=== PATIENT | female | born 1970 | race Caucasian/White ===

== ENCOUNTER 2018-11-21 10:02 | Inpatient (IN) ==
[2018-11-21] MEDS ORDERED: NS 1,000 ML ONE ×2 (10:05→12:41)
[2018-11-21] MEDS ORDERED: NS 1,000 ML, NS 1,000 ML IV ONE ×2 (10:08)
[2018-11-21] MEDS ORDERED: PROTONIX IV ONE (10:09)
[2018-11-21] MEDS ORDERED: SODIUM CHLORIDE 0.9% INJ ONE (10:09)
[2018-11-21] MEDS ORDERED: NS 1,000 ML IV ONE ×4 (10:10→15:03)
[2018-11-21] MEDS ORDERED: PROTONIX ONE (10:21)
[2018-11-21] MEDS ORDERED: PROTONIX 80 MG in NS 80 ML IV SCH ×2 (10:30→15:00)
[2018-11-21 10:45] LABS: BASO# 0.07 X1000 (0.0-0.2); BASO% 0.4 % (0.0-0.8); EOS% 2.6 % (0.0-10.0); HEMATOCRIT 32.7 % (37.0-47.0); HEMOGLOBIN 10.6 g/dL (12.0-16.0); IMM GRAN# 0.06 X1000 (0.0-0.04); IMM GRAN% 0.3 % (0.0-0.5); LYMPH# 11.44 X1000 (1.2-3.4); LYMPH% 59.1 % (20.5-51.1); MCH 30.5 PG (27-31); MCHC 32.4 g/dL (33-37); MCV 94.2 FL (81-99); MONO# 1.02 X1000 (0.11-0.59); MONO% 5.3 % (1.7-9.3); MPV 10.6 FL (7.4-10.4); NEUT# 6.28 X1000 (1.4-6.5); NEUT% 32.3 % (42.2-75.2); PLT 200 X1000 (130-400); RBC 3.47 XMIL (4.2-5.4); RDW 14.6 % (11.5-14.5); WBC 19.37 X1000 (4.8-10.8)
[2018-11-21 11:02] LABS: AGAP 15; ALKALINE PHOSPHATASE 93 U/L (32-104); BUN 5 mg/dL (8-22); CALCIUM 8.7 mg/dL (8.8-10.2); CHLORIDE 104 mmol/L (98-107); COSMO 282; CREATININE 0.5 mg/dL (0.5-0.9); ESTIMATED GFR > 60; GLUCOSE 364 mg/dL (70-104); GOT 20 U/L (10-30); GPT 11 U/L (10-36); POTASSIUM 4.8 mmol/L (3.5-5.1); SODIUM 135 mmol/L (136-145); TCO2 16 mmol/L (25-35); TOTAL PROTEIN 5.9 g/dL (6.3-8.3)
[2018-11-21] MEDS ORDERED: ZOFRAN IV PRN ×2 (11:24→15:04)
[2018-11-21] MEDS ORDERED: VANCOMYCIN IV PER PHARMACY MISC SCH (11:30)
[2018-11-21] MEDS ORDERED: NS 1,000 ML IV SCH ×2 (11:30→16:00)
[2018-11-21 11:33] LABS: IRON SATURATION 31 %; TIBC 208 ug/dL; TOTAL IRON 64 ug/dL (49-151); UNBOUND IRON 144 ug/dL (112-346)
[2018-11-21 11:37] LABS: HEMOGLOBIN A1C 9.2 % (4.8-6.0)
[2018-11-21] MEDS ORDERED: HUMULIN R (PARKWAY) SUBQ SCH (11:40)
[2018-11-21] MEDS ORDERED: SANDOSTATIN 500 MICROGM in D5W 100 ML IV SCH ×2 (12:00→22:00)
[2018-11-21] MEDS ORDERED: VANCOMYCIN 1,800 MG in NS 250 ML IV ONE (12:00)
[2018-11-21] MEDS ORDERED: ZOSYN 3.375 GM in NS 50 ML IV SCH ×2 (12:00→20:00)
--- NOTE | 2018-11-21 12:03 | PROVIDER DOCUMENTATION ---
This chart was entered by Julia Rothman Scribe, acting as scribe for Aidan Woods MD. HPI-Abdominal Pain/GI Problem - General Chief Complaint: GI Bleed Stated Complaint: VOMITING Time Seen by Provider: 11/21/18 10:07 Source: patient Allergies/Adverse Reactions: Patient Allergies Allergy/AdvReac Type Severity Reaction Status Date / Time pravastatin Allergy SWELLING Verified 01/17/15 12:33 Home Medications: Home Medication List Medication Instructions Recorded Confirmed Last Taken Type Clopidogrel Bisulfate [Plavix] 75 mg PO 07/27/13 01/17/15 Unknown History LISINOpril [Prinivil] 10 mg PO DAILY 07/27/13 01/17/15 Unknown History Glipizide 10 mg PO DAILY 01/22/14 01/17/15 Unknown History Rosuvastatin Calcium [Crestor] 10 mg PO DAILY 01/17/15 01/17/15 Unknown History Sulfamethoxazole/Trimethoprim 1 each PO BID #10 tablet 01/17/15 Unknown Rx [Bactrim Ds Tablet] Hydrocodone/APAP 5 mg/325 mg 1 each PO Q6H PRN PRN #15 tablet 01/26/15 Unknown Rx [[place]-5] Gabapentin 300 mg PO Q8H PRN #12 cap 10/19/18 Unknown Rx Hydroxyzine Pamoate [Vistaril] 25 mg PO Q6H PRN #30 cap 10/19/18 Unknown Rx - History of Present Illness-ABD Nature of Presenting Problems: Patient is a 48 year old female who presents with diarrhea and hematemesis. States symptoms started 30 minutes prior to arrival. 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 States she takes an 81 mg aspirin and Plavix. Quality of Pain: reports: none Severity in ED: reports: severe Onset/Duration: reports: 1/2 hour ago Timing: reports: still present Activities at Onset: reports: light activity Associated Symptoms: reports: diarrhea, vomiting (hematemesis) Rectal Bleeding: reports: none Emesis Description: reports: red blood Bruising or Bleeding Gums?: No Similar Symptoms Previously?: No Recently seen or treated by another doctor?: No Review of Systems - Adult - REVIEW OF SYSTEMS - ADULT ROS:: limited per condition Constitutional: reports: no symptoms reported Eyes: reports: no symptoms reported Ears, Nose, Mouth & Throat: reports: no symptoms reported Cardiovascular: reports: no symptoms reported Respiratory: reports: no symptoms reported Gastrointestinal: reports: see HPI, hematemesis, diarrhea. denies: rectal bleeding Genitourinary: reports: no symptoms reported Musculoskeletal: reports: no symptoms reported Integumentary: reports: no symptoms reported Neurological: reports: no symptoms reported Psychiatric: reports: no symptoms reported Endocrine: reports: no symptoms reported Hematologic/Lymphatic: reports: no symptoms reported Allergic/Immunologic: reports: no symptoms reported All Other Systems: Reviewed and Negative Past History - Adult - PAST MEDICAL HISTORY-ADULT Review of Records: reports: Old Records Reviewed, Nursing Assessment Review, Medications Reviewed, Social history reviewed & non-contributory. Major Childhood Illnesses: reports: denies history Cardiovascular: reports: cardiac disease, hyperlipidemia Respiratory: reports: denies history Gastrointestinal: reports: Crohn's, other (nonalcoholic cirrhosis) Obstetrical/Gynecological: reports: denies history Genitourinary: reports: denies history Musculoskeletal: reports: denies history Neurological: reports: denies history Endocrine/Immune: reports: Diabetes Other Conditions: reports: denies history - PRIOR SURGERIES/PROCEDURES Surgical/Procedure History: reports: cardiac stent, BTL, , orthopedic (extremity) - IMMUNIZATION STATUS Childhood Immunizations: See Nurse Assessment Flu Vaccine: See Nurse Assessment - FAMILY HISTORY Family History: reviewed, not pertinent - SOCIAL HISTORY Smoking: cigarettes, greater than 1 pack/day Provider spent 3-5 mins advising pt. on dangers of tobacco.: Discussed manners to quit use, and f/u contacts for add'l counseling. Substance Use: denies Physical Exam-General - PHYSICAL EXAM-ADULT Initial Vital Signs Reviewed: Yes - CONSTITUTIONAL General Appearance: alert, severe distress. negative: lethargic - HEAD, EARS, NOSE, MOUTH & THROAT HENMT: normocephalic/atraumatic, moist mucous membranes. negative: angioedema - RESPIRATORY Respiratory: chest non-tender, lungs clear, normal breath sounds. negative: r ales, rhonchi - CARDIOVASCULAR Cardiovascular: normal peripheral pulses, tachycardia. negative: systolic murmur - GASTROINTESTINAL (ABDOMEN) Abdominal Exam: normal bowel sounds, soft, tenderness (diffuse). negative: distended - MUSCULOSKELETAL Extremity: other (dried blood stains on bilateral legs). negative: deformity, erythema - SKIN Integumentary: normal turgor, warm/dry. negative: cyanosis, ecchymosis, jaundice - NEUROLOGIC Neurologic: grossly normal. negative: aphasia, facial droop Progress - PLAN OF CARE/RESULTS Progress/Plan/Lab Results: Vital Signs - 8 hr 11/21/18 10:03 Pulse Rate 137 H Respiratory Rate 28 H Blood Pressure 66/46 O2 Sat by Pulse Oximetry 97 Orders Category Date Time Status CBC WITH DIFF [HEME] Stat Lab 11/21/18 10:08 Uncollected COMPREHENSIVE METABOLIC PANEL [CHEM] Stat Lab 11/21/18 10:08 Uncollected TYPE & SCREEN [BBK] Stat Lab 11/21/18 10:08 Uncollected 0.9% Sodium Chloride Inj [Ns] 1,000 ml Med 11/21/18 10:08 Active 0.9% Sodium Chloride Inj [Ns] 1,000 ml IV 999 mls/hr 0.9% Sodium Chloride Inj [Ns] 1,000 ml Med 11/21/18 10:10 Active IV 200 mls/hr 0.9% Sodium Chloride Inj [Ns] 2,000 ml Med 11/21/18 10:05 Discontinued .ROUTE As directed 0.9% Sodium Chloride Inj [Ns] 80 ml Med 11/21/18 10:15 Ordered Pantoprazole [Protonix] 80 mg IV 10 mls/hr Pantoprazole [Protonix] Med 11/21/18 10:09 Discontinued 40 mg IV NOW ONE Pantoprazole [Protonix] Med 11/22/18 10:09 Ordered 40 mg IV Q12H Sodium Chloride 0.9% Med 11/21/18 10:09 Discontinued 10 ml INJ NOW ONE Result Diagrams: 11/21/18 10:10 11/21/18 10:10 - CONSULTS/PCP/HOSPITALIST Notification #1 *Consult/PCP/Hospitalist*: Wes[place] Time Discussed: 11:08 Consult Disposition: Will see in ED Departure - Departure Date of Disposition Decision: 11/21/18 Time of Disposition Decision: 11:07 DIAGNOSIS: GIB (gastrointestinal bleeding) Disposition: ADMITTED INPATIENT 09 Certified Medical Emergency: Emergent Condition: Fair - Critical Care Note This patient required my direct & personal management of CC.: No Attestation - Physician/ MELVA Attestation Patient care was provided by Advanced Practice Provider:: No The physician spent face to face time with patient:: Yes Advanced Practice Provider documentation review:: Supervising physician onsite and consulted in the evaluation and care of this patient. The physician did have a face to face encounter with the patient. This chart was documented by the indicated scribe, (Julia Rothman Scribe) and accurately reflects the services I performed and decisions made by me, Aidan Woods MD, as attested by the provider's signature.
--- NOTE | 2018-11-21 12:11 | Diag Imaging Result Doc PS360 ---
EXAM: CHEST-PORTABLE INDICATION: leukocytosis; r/o pna TECHNIQUE: One view COMPARISON: 12/14/2012 FINDINGS: The lungs are grossly clear. There is no discrete pleural fluid collection or pneumothorax. The cardiomediastinal silhouette and central vasculature are grossly unremarkable. IMPRESSION: No evidence of acute pathology by plain radiograph. Electronically signed by Chung Avila 11/21/2018 12:08 PM
--- NOTE | 2018-11-21 12:23 | Diag Imaging Result Doc PS360 ---
CT ABD/PELVIS W/IV CONT ONLY - 11/21/2018 INDICATION: GIB COMPARISON: 10/28/2017 FINDINGS: The lung bases are clear. Heart size is top normal. No pericardial effusion. Stable atrophic heterogeneous liver compatible with cirrhosis. Stable severe varices in the posterior wall the stomach projecting into the gastric lumen. There are also stable spleen no renal shunts to the left renal vein. The spleen size is top normal now measuring about 10.9 x 7.3 cm. The gallbladder is collapsed. Other abdominal organs are normal. No free air or free fluid. No bowel obstruction or inflammation. Normal appendix. Urinary bladder, uterus, ovaries, and rectum are normal. Bones are intact. IMPRESSION: Decrease in size of the splenomegaly. Stable severe gastric varices and splenorenal shunting. Stable abnormal liver compatible with cirrhosis. This exam was performed using automated exposure control, adjustment of mA or kV according to patient size, and/or use of iterative reconstruction technique Electronically signed by Merrill Novoa 11/21/2018 12:21 PM
[2018-11-21] MEDS ORDERED: LEVOPHED 8 MG in D5 1/2 NS 250 ML IV SCH ×2 (13:00→17:00)
[2018-11-21] MEDS ORDERED: TYLENOL PO PRN (13:29)
[2018-11-21 14:15] LABS: BE -11.2 mmoll (-3.0-3.0); BLOOD TYPE ARTERIAL; HCO3-(ACT) 16.2 mmoll (20.0-26.0); PCO2(98.6) 37 mmHg (35-45); PO2(98.6) 112 mmHg (60-100); SAMPLE BLOOD; pH(98.6) 7.23 (7.35-7.45)
[2018-11-21 14:16] LABS: ALLEN TEST YES; METHB 1.4 % (0.0-1.5); MODALITY CANNULA; O2(CT) 11.4 mL/dL (15.0-23.0); O2HB 94.5 % (95.0-99.0); THB 8.4 g/dL (11.5-17.4)
--- NOTE | 2018-11-21 14:16 | HISTORY AND PHYSICAL ---
PRIMARY CARE PROVIDER: Dr. Alexander Hebert. PRIMARY CLOUD SUBJECT MATTER EXPERT: Dr. Smith who she saw last was around a year ago. CHIEF COMPLAINT: Vomiting blood and maroon diarrhea. HISTORY OF PRESENT ILLNESS: Ms. Josette Machado is a 48-year-old, female with a medical history of Crohn's. Unknown when her last flare was, LUNA, gastric varices, diabetes, coronary artery disease with 2 cardiac stents, for which she takes Plavix and aspirin for. States that around 9 a.m. this morning she had already taken her Plavix and aspirin and has not had any symptoms prior to 9 a.m. but at 9 a.m. started vomiting bright red blood. She has at least had 4 bloody emesis along with multiple bouts of maroon diarrhea-like stools. She has been having abdominal pain that started across the middle and radiates all the way around to her back. She has had chills and lightheadedness. She denies chest pain. Denies shortness of breath. Denies fevers. Hemoglobin and hematocrit came back at 10 and 32. She had abdominal pelvic CT which actually shows a decrease in the size of the splenomegaly that shows severe gastric varices that are stable and splenorenal shunting. Also the liver is abnormal and compatible with cirrhosis, so we will start her on a Protonix drip and a Sandostatin drip. We will do serial hemoglobin and hematocrit and transfuse blood as needed. We will get her transferred to [facility] to the ICU as she presented with hypotension as well, but that resolved quickly with IV fluid boluses. We will consult Gastroenterology. PAST MEDICAL HISTORY: 1. Gastric varices. 2. LUNA. 3. Crohn's with unknown last time of flare. 4. Diabetes mellitus type 2 uncontrolled with a hemoglobin A1c of 9.2. 5. Coronary artery disease. Denies ever having a myocardial infarction but states she has 2 cardiac stents for which she takes Plavix and aspirin for. 6. Hyperlipidemia. 7. Hypertension. 8. Diabetic neuropathy. 9. GERD. PAST SURGICAL HISTORY: 1. Two cardiac stents. 2. Left knee scoped 4 times. 3. D and C x5. 4. section x2. 5. Last colonoscopy and EGD she feels was around 1 year ago. SOCIAL HISTORY: One pack per day smoker for 20 years. Also smokes marijuana every other day. Denies alcohol. Disabled and lives at home with her who is currently at the bedside. FAMILY HISTORY: Mother side of family. She had a grandmother that at 65 from myocardial infarction. On her father's side of family, grandmother and grandfather both had heart attacks. ALLERGIES: Pravastatin. HOME MEDICATIONS: Not been reconciled but what is listed here and which she said for sure she takes is Plavix and aspirin. Other medications listed are rosuvastatin, glipizide, lisinopril, Neurontin, Mcdonald 5, hydroxyzine. Again, these need to be hydroxy seen, but again these need to be reconciled. REVIEW OF SYSTEMS: She has complained of GERD or reflux type symptoms for 1 month. Fourteen- point review of systems is complete and all are negative, except for those mentioned above in HPI. PHYSICAL EXAMINATION: VITAL SIGNS: Temperature 95.7 degrees, heart rate 103, respiratory rate 24, blood pressure 128/68, O2 saturation 98% on 2 L nasal cannula. Height 5 feet 4 inches tall. Weight 159 pounds. BMI 27.38. GENERAL: Ms. Josette Machado is a 48-year-old, female. She is in no acute distress. She is able to answer questions appropriately. HEENT: Atraumatic, normocephalic. Pupils equal, round, and reactive to light. Extraocular movements are intact. Mucous membranes are dry. NECK: Trachea midline. CARDIOVASCULAR: S1, S2. Tachycardic rate and rhythm. No rubs, gallops, murmurs. No lower extremity edema. With +2 dorsalis and radial pulses. Negative JVD or carotid bruits. PULMONARY: Clear to auscultation. Bilateral breath sounds. No accessory muscle use or work of breathing noted. GI: Soft, tender in all 4 quadrants but primarily across the midline right to left tenderness. Hyperactive bowel sounds x4. NEURO: A and O x3. Follows commands. Sensory is intact. SKIN: Warm, dry, and intact. EXTREMITIES: Moves all extremities equally with full range of motion. LABORATORY DATA: White blood cells 19,000, hemoglobin 10, hematocrit 32, platelet count 200,000. Sodium 135, potassium 4.8, BUN 5, creatinine 0.5, glucose is 364. Hemoglobin A1c is 9.2. Iron 64, total iron binding capacity 208, iron saturation 31. Unsaturated iron binding is 144. Ferritin is pending. Total bilirubin 0.40. AST 20. ALT 11. Albumin 3. Triglycerides 138. Total cholesterol 101. LDL 59. HDL 32. Vitamin B12 of 557. Salicylate less than 3. IMAGING: Abdominal and pelvic CT with IV contrast only with decrease in size of the splenomegaly. Stable, severe gastric varices and splenorenal shunting. Stable abnormal liver compatible with cirrhosis and a chest x-ray was negative for any acute findings. EKG not available at this moment yet. ASSESSMENT AND PLAN: 1. Acute gastrointestinal bleed likely upper GI secondary to gastric varices but also possibly could have a relation to Crohn's. There is no known timeframe of when she last had a flare but will get a CRP level. She is going to be started on Protonix drip and Sandostatin drip. CT reveals a gastric varices that are large. She is on Plavix and aspirin which she last took this morning. She has current type and screen. Will do serial hemoglobin and hematocrit q.6 hours. The next one will be scheduled for 4 p.m. She will be kept n.p.o. with nothing by mouth for now. She is going to transfer over to [facility] ICU. Dr. Powers who is guidance consultant with Dr. Smith has been notified of the patient's condition. 2. Gastroesophageal reflux disease worsened over the last 1 month is on a Protonix drip. 3. History of Crohn's but no history of when she actually had a last flare. We will do a CRP. 4. Nonalcoholic steatohepatitis. Liver enzymes are normal. CT shows the cirrhosis. We will get a random ammonia level, but she does not seem to be lethargic at all. 5. Diabetes mellitus type 2 uncontrolled. Last hemoglobin A1c today was 9.2. She has had sugars 300s and as high as 400s. Sliding scale insulin initiated. 6. Hyperlipidemia. She is actually on rosuvastatin. She is n.p.o. for now, and we will just keep her off that. 7. Hypertension. We will hold antihypertensives due to the fact that she is having hypotension secondary to volume depletion from GI bleed. 8. Acute blood loss anemia secondary to #1. Again will check her hemoglobin and hematocrit every 6 hours and transfuse for anything less than 8. 9. Coronary artery disease with history of cardiac stents. She last took her Plavix and aspirin this morning. We will hold those for now due to the GI bleeding. 10. Deep venous thrombosis prophylaxis. SCDs. 11. Tobacco abuse. Cessation discussed. 12. Marijuana use. Cessation discussed. Dictated by LIA Leonard for Karri Harris MD Addendum: Patient seen and examined by myself. Agree with CNRP note. It reflects my assessment and plan. Patient is being admitted to hospital for GI bleeding. She may have esophageal varices that bled. Will transfuse if Hb less than 7, will provide IV fluids for maintaining blood pressure up and will consult GI as well. Will monitor patient closely in ICU. cc: LIA Leonard MD [facility]
[2018-11-21 14:31] LABS: FERRITIN 145 ng/mL (13-150)
[2018-11-21 14:53] LABS: BILIRUBIN URINE NEGATIVE (NEGATIVE); BLOOD URINE NEGATIVE (NEGATIVE); CLARITY CLEAR (CLEAR); COLOR YELLOW; KETONE URINE NEGATIVE (NEGATIVE); LEUKOCYTES URINE NEGATIVE (NEGATIVE); NITRITE URINE NEGATIVE (NEGATIVE); PROTEIN URINE NEGATIVE (NEGATIVE); SP GRAVITY URINE 1.005; UROBILINOGEN URINE NORMAL
[2018-11-21 15:19] LABS: URINE BACTERIA NEGATIVE /HFP; URINE CAST NONE SEEN /LPF; URINE CRYSTAL NONE SEEN /HPF; URINE EPITHELIAL CELLS <10 /HPF (<10); URINE RBC <10 /HPF (<10); URINE SOURCE CATH; URINE WBC <10 /HPF (<10); URINE YEAST NONE SEEN /HPF
[2018-11-21] MEDS ORDERED: REGLAN IV STA (15:28)
[2018-11-21 15:34] LABS: BASO# 0.09 X1000 (0.0-0.2); BASO% 0.3 % (0.0-0.8); EOS# 0.18 X1000 (0.0-0.7); EOS% 0.6 % (0.0-10.0); HEMATOCRIT 26.1 % (37.0-47.0); HEMOGLOBIN 8.2 g/dL (12.0-16.0); IMM GRAN# 0.32 X1000 (0.0-0.04); LYMPH# 6.04 X1000 (1.2-3.4); LYMPH% 19.8 % (20.5-51.1); MCH 29.7 PG (27-31); MCHC 31.4 g/dL (33-37); MCV 94.6 FL (81-99); MONO# 1.97 X1000 (0.11-0.59); MONO% 6.5 % (1.7-9.3); MPV 10.6 FL (7.4-10.4); NEUT# 21.89 X1000 (1.4-6.5); NEUT% 71.8 % (42.2-75.2); PLT 286 X1000 (130-400); RBC 2.76 XMIL (4.2-5.4); RDW 14.6 % (11.5-14.5); WBC 30.49 X1000 (4.8-10.8)
[2018-11-21 15:43] LABS: INR 1.29; PROTIME 16.7 Seconds (11.0-16.0)
[2018-11-21] MEDS ORDERED: QUELICIN (DOSE) ONE (15:53)
[2018-11-21] MEDS ORDERED: AMIDATE ONE (15:53)
[2018-11-21] MEDS ORDERED: XYLOCAINE-MPF 2% ONE (15:53)
[2018-11-21] MEDS ORDERED: HUMULIN R SUBQ SCH ×2 (16:00→21:00)
[2018-11-21 16:07] LABS: AGAP 18; ALBUMIN 2.4 g/dL (3.5-5.0); ALKALINE PHOSPHATASE 82 U/L (32-104); BUN 5 mg/dL (8-22); CHLORIDE 107 mmol/L (98-107); COSMO 294; CREATININE 0.5 mg/dL (0.5-0.9); ESTIMATED GFR > 60; GOT 47 U/L (10-30); GPT 26 U/L (10-36); SODIUM 140 mmol/L (136-145); TCO2 15 mmol/L (25-35); TOTAL PROTEIN 4.8 g/dL (6.3-8.3)
[2018-11-21 16:44] LABS: GLUCOSE 411 mg/dL (70-104)
[2018-11-21] MEDS ORDERED: CALCIUM GLUCONATE 4.65 MEQ in NS 50 ML IV ONE (16:44)
[2018-11-21] MEDS ORDERED: VERSED ONE (16:47)
[2018-11-21] MEDS ORDERED: SODIUM CHLORIDE 0.9% 10 ML ONE (16:53)
[2018-11-21] MEDS ORDERED: NEO-SYNEPHRINE ONE (16:53)
--- NOTE | 2018-11-21 16:56 | PROGRESS NOTE ---
DATE: 11/21/2018 HISTORY: The patient was sent from [place]. She has a history of: 1. Gastric varices. 2. LUNA. 3. Crohn disease, unsure of last flare. 4. Diabetes mellitus type 2, uncontrolled. Hemoglobin was 9.2. 5. Coronary artery disease. She denies ever having myocardial infarction, but she has had 2 cardiac stents. 6. Hyperlipidemia. 7. Hypertension. 8. Diabetic neuropathy. 9. Gastroesophageal reflux disease. PAST SURGICAL HISTORY: 1. Two cardiac stents placed. 2. Left knee scope 4 times. 3. D and C x5. 4. section x2. 5. Last colonoscopy and EGD around a year ago. Dr. Powers was seen. He said about a year ago she had large varices. He is going to scope her tomorrow to make sure there are no ulcers, but she may need a TIPS shunt, and so we will see what the scope shows tomorrow. PHYSICAL EXAMINATION: I have looked the patient over. One exam she is comfortable at the present time and appears stable. I have reviewed her orders and H P and I do not see any changes to be made. cc: Lawrence Berg MD
[2018-11-21] MEDS: ATIVAN IV PRN ×2 (17:29→18:36)
--- NOTE | 2018-11-21 17:35 | DISCHARGE SUMMARY ---
ADMISSION DATE: 11/21/2018 DISCHARGE DATE: 11/21/2018 HISTORY: The patient was admitted on 11/21/2018 and transferred to [facility] on the afternoon of 11/21/2018. She is a patient of Dr. Alexander Hebert who came in with vomiting blood and maroon diarrhea. She is a 48-year-old female with medical history of Crohn's - unknown when her last flare was, history of nonalcoholic steatohepatitis and cirrhosis, gastric varices, diabetes mellitus type 2, coronary artery disease, and 2 cardiac stents. She takes Plavix and aspirin. She was vomiting some bright red blood earlier this morning. She had 4 bloody emesis along with multiple bouts of maroon-colored diarrhea and having abdominal pain across the middle and radiates up into her back. She has chills and lightheadedness. Denies fever. Hemoglobin and hematocrit came back at 10 and 32. She had abdominal pelvic CT which actually shows decrease in size of splenomegaly and shows severe gastric varices also stable and she had splenorenal shunting. The liver is abnormal compatible with cirrhosis. Started on Protonix drip and Sandostatin. PAST MEDICAL HISTORY: One again reviewed. 1. Gastric varices. 2. LUNA. 3. Crohn's disease, unknown last time she had a flare. 4. Diabetes mellitus type 2. Hemoglobin A1c was 9.2. 5. Coronary artery disease. Denies any myocardial infarction, but she has had 2 cardiac stents. She takes Plavix and aspirin for this. 6. Hyperlipidemia. 7. Hypertension. 8. Diabetic neuropathy. 9. Gastroesophageal reflux disease. PAST SURGICAL HISTORY: 1. Cardiac stents. 2. Left knee scope 4 times. 3. D and C x5. 4. section x2. 5. Last colonoscopy and EGD was about a year ago. HOSPITAL COURSE: So admitted with acute gastrointestinal bleeding likely from esophageal varices. Dr. Powers performed an EGD and found some active bleeding. She also has a history of Crohn's, unsure of her last flare. Because of the esophageal bleeding and the size of the varices, felt she probably is going to be a candidate for TIPS and would need Interventional Radiology. So plan to transfer to [facility]. Continue her current medications. She is getting a pantoprazole drip and octreotide drip as well. We will continue those and get her ready for transfer. cc: Lawrence Berg MD
[2018-11-21 17:49] LABS: HEMATOCRIT 24.1 % (37.0-47.0); HEMOGLOBIN 7.5 g/dL (12.0-16.0)
[2018-11-21 17:56] LABS: ALLEN TEST YES; BLOOD TYPE ARTERIAL; HCO3-(ACT) 13.3 mmoll (20.0-26.0); METHB 0.9 % (0.0-1.5); O2(CT) 11.2 mL/dL (15.0-23.0); O2HB 97.6 % (95.0-99.0); PCO2(98.6) 39 mmHg (35-45); PO2(98.6) 281 mmHg (60-100); SAMPLE BLOOD; SAO2 100.2 % (95.0-100.0); SRATE 14 BPM; THB 7.6 g/dL (11.5-17.4); TVOL 500 mL
--- NOTE | 2018-11-21 17:56 | Diag Imaging Result Doc PS360 ---
CHEST-1 VIEW - 11/21/2018 INDICATION: ett placement COMPARISON: 12:06 PM FINDINGS: There is a new endotracheal tube in good position at T2. The lungs are clear. Heart size is normal. No pneumothorax or pleural effusion. IMPRESSION: Good endotracheal tube placement. Electronically signed by Merrill Novoa 11/21/2018 5:54 PM
[2018-11-21 17:57] LABS: MODALITY VENTILATOR; pH(98.6) 7.13 (7.35-7.45)
[2018-11-21] MEDS ORDERED: VANCOMYCIN 1 GM/NS 1 GM/250 ML IVPB IV ONE (18:11)
[2018-11-21] MEDS ORDERED: ZOSYN 4.5 GM in NS 100 ML IV ONE (18:13)
--- NOTE | 2018-11-21 19:25 | GASTROENTEROLOGY CONSULTATION ---
DATE: 11/21/2018 REASON FOR CONSULTATION: Hematemesis, melena, LUNA, cirrhosis. HISTORY OF PRESENT ILLNESS: Miss Josette Machado is a 48-year-old woman with a past medical history of LUNA cirrhosis with nonbleeding varices, reported Crohn's disease, hypertension, hyperlipidemia, coronary artery disease status post stents on aspirin and Plavix, and auf-wbhhsid-xwrsrxezk diabetes type 2 who presents with acute onset of hematemesis with bright red blood and clots this morning as well as melena. The patient reports waking up to urge to vomit. She vomited copious amounts of dark blood x3 episodes. She subsequently developed melenic stools x3 episodes. She says she has some associated periumbilical pain. No chest pain or shortness of breath. She does have some dizziness and lightheadedness. No confusion, abdominal swelling, lower extremity edema, or recent falls. She denies any NSAID use. She denies any prior history of GI bleeding. No fevers. REVIEW OF SYSTEMS: As per HPI, otherwise 12-point review of systems is negative. PAST MEDICAL HISTORY: LUNA cirrhosis, gastric varices, coronary artery disease with stents, reported Crohn's disease, xdc-avwcjpk-jkdakcbwr diabetes, hyperlipidemia, hypertension, depression, and anxiety. PAST SURGICAL HISTORY: D and C x5, x2, and left knee surgery x4. FAMILY HISTORY: No family history of liver disease or cirrhosis. SOCIAL HISTORY: She smokes 1 pack per day. No alcohol or drug use. MEDICATIONS: Plavix, aspirin 81 mg, lisinopril, Lexapro, and Amaryl. ALLERGIES: Pravastatin. PHYSICAL EXAMINATION: Vital signs: On presentation to [facility], blood pressure of 66/46 with a heart rate of 137, respiratory rate 28, and O2 saturation 97%. After 2 units of blood and bolus a total 4 L of fluid of normal saline, blood pressure 99/60, temperature 96.4 degrees, heart rate 121, respiratory rate 29, and O2 saturation 98% on 2 L nasal cannula. General: The patient is ill appearing, fatigued. HEENT: Sclerae anicteric. Moist mucous membranes. Extraocular motor intact. A O x3. Neck: Supple. No JVD or lymphadenopathy. Cardiac: Tachycardic. Regular. No murmurs. Lungs: Clear to auscultation bilaterally. Abdomen: Obese. Mild tenderness in the epigastric area. No rebound or guarding. Difficult to appreciate any ascites. Extremities: No clubbing, cyanosis, or edema. Neurologic: Nonfocal. No asterixis on exam. LABORATORIES: White count of 19.37, hemoglobin 10.6, platelets of 200,000. ABG with pH is 7.23, pCO2 of 37, pO2 of 112. Lactate of 7.00. Sodium 135, potassium 4.8, chloride of 104, bicarb 16, BUN of 5, creatinine 0.5, glucose of 364. A1c of 9.2. Iron studies are normal. LFTs are normal. Ammonia of 115. Total protein of 5.9, albumin 3.0. Triglycerides of 138. Negative salicylates. UA shows 3+ glucose. IMAGING: CT of the abdomen and pelvis shows decrease in size of the splenomegaly, stable severe gastric varices, and a splenorenal shunting. Stable abnormal liver compatible with cirrhosis. No free air or free fluid or bowel obstruction. Chest x-ray: No acute pathology. ASSESSMENT AND PLAN: Miss Josette Machado is a 48-year-old woman with a history of nonalcoholic steatohepatitis cirrhosis with nonbleeding gastric varices, coronary artery disease on aspirin and Plavix, and noninsulin dependent diabetes who presents with acute gastrointestinal bleed with hematemesis and melena concerning for potential gastric variceal bleed. The patient had an EGD and colonoscopy with Dr. Smith exactly a year ago which revealed large gastric varices, possible Unger's esophagus, and normal colonoscopy. She has been bolused multiple liters of fluid and started on a PPI drip and octreotide drip for coverage of peptic ulcer disease as well as variceal bleeding. Her heart rate has come down and her blood pressure has improved with resuscitation. However, I am concerned for variceal bleeding. We will plan for diagnostic EGD to identify gastric varices. If gastric varices are present, the patient will need to have a transfer to [facility] for urgent transjugular intrahepatic portosystemic shunt evaluation. Coags are pending. Repeat hemoglobin and hematocrit and chemistries as well as liver function tests are pending. Lactate has also been repeated. She is NPO. She is on antibiotics with vancomycin. She received vancomycin and Zosyn and sliding scale insulin. We are holding her blood pressure medications. She has a Shelley in place. She is on sliding scale insulin. # GI bleed # Gastric varices # LUNA cirrhosis # Anemia # Lactic acidosis Thank you for this consult. We will follow with you. Please call with any questions or concerns. MACK
[2018-11-21 19:34] VITALS: BP 87/52
[2018-11-21] MEDS ORDERED: NS 250 ML IV SCH (20:30)
--- NOTE | 2018-11-22 09:59 | ENDOSCOPY OPERATIVE NOTE ---
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 PROCEDURE PERFORMED: EGD, diagnostic MEDICATIONS: Per Anesthesia TOPICAL ANESTHETIC: none CONSENT: The patient understands the risks and benefits of the procedure and understands that these r isks include, but are not limited to: sedation, allergic reaction, infection, perforation and/or bleeding. Alternative means of evaluation and treatment include, among others: physical exam, x-rays, and/or surgical intervention. The patient elects to proceed with this endoscopic procedure. HISORY AND PHYSICAL: 11/21/2018 function. Hand hygiene and appropriate measures for infection prevention was taken. After the risks, benefits and alternatives of the procedure were thoroughly explained, Informed consent was verified, confirmed and timeout was successfully executed by the treatment team. The patient was anesthetized with topical anesthesia and the [id number] ([id number]) endoscope was introduced through the mouth and advanced to the second portion of the duoden um. Retroflexion was performed in the stomach and gastric varices. The gastroscope was then slowly withdrawn and freddy david. ESOPHAGUS: The mucosa of the esophagus appeared normal. No evidence of esophageal varices. STOMACH: A single non-bleeding ulcer measuring 5mm in size with a dark spot was found in the gastric antrum. Retroflexion was performed in the stomach and revealed large gastric (GOV2). Approximately 500 mL of fresh blood was suction from the stomach. There was no signs of active bleeding at the end of the procedure. DUODENUM: There was fresh BRB seen throughout the first and second portion of the duodenum. The area was irrigated with copious amount of fluid with good visualization of the underlying mucosa. The duodenum was normal. SPECIMENS REMOVED: No ADVERSE EVENTS: There were no complications. POSTOPERATIVE DIAGNOSIS: ESOPHAGUS: The mucosa of the esophagus appeared normal. No evidence of esophageal varices. STOMACH: A single non-bleeding ulcer measuring 5mm in size with a dark spot was found in the gastric antrum. Retroflexion was performed in the stomach and revealed large gastric (GOV2). Approximately 500 mL of fresh blood was suction from the stomach. There was no signs of active bleeding at the end of the procedure. DUODENUM: There was fresh BRB seen throughout the first and second portion of the duodenum. The area was irrigated with copious amount of fluid with good visualization of the underlying mucosa. The duodenum was normal. RECOMMENDATIONS: Strict NPO, no NG/OG tube Continue octreotide and protonix drips Trend H/H q4-6h, transfuse prn for goal hgb 7-8, do not overtransfuse Continue IVF resuscitation, pressors to maintain MAPS >=60 Continue empiric antibiotics for SBP prophylaxis Called [facility] ICU attending physician, Dr. Buckley. Patient accepted for transfer for urgent TIPS evalu ation Please notify utilization coordinator GI if there are questions or changes in her clinical status Discussed plan with patient's family and primary team. REPEAT EXAM: Alexander Powers MD eSigned: Alexander Powers MD 11/21/2018 5:43 PM cc: PATIENT NAME: Josette Way MR#: [id number]
[2018-11-22] MEDS ORDERED: PROTONIX IV SCH ×2 (10:00)
== END 2018-11-21 20:20 | disposition short-term general hospital (02) | DRG 299 ==
LOC: P.ED 10:02 → SUATTDRO 11:52 → ICU 11:52
PROVIDERS: ATTEND Emergency Medicine